=== PATIENT | female | born 1995 | race Caucasian/White ===

== ENCOUNTER → 2020-02-26 | Outpatient (CLI) | payer SELFPAY ==
--- NOTE | 2020-02-26 16:35 | RADIOLOGY REPORT (SQ) ---
EXAM DESCRIPTION: U/S [id number] TRNABD 1GES W/ODOP IMAGES COMPLETED DATE/TIME: 02/26/2020 2:10 pm REASON FOR STUDY: Z34.81 ENCOUNTER FOR SUPRVSN OF NORMAL , FIRST TRIMESTER Z34.81 ENCOUNTE R FOR SUPRVSN OF NORMAL , FIRST TRIM COMPARISON: None. TECHNIQUE: Transabdominal static and realtime grayscale images acquired of the pelvis. Additional se lected spectral and color Doppler images recorded. All images stored on PACs. bHCG: Not available. CLINICAL DATES: Not Available. LIMITATIONS: None. FINDINGS: FETUS: Single Living intrauterine . ULTRASOUND EGA: 8 weeks 1 day ULTRASOUND TERESA: 10/06/2020 EFW: Not applicable less than 20 weeks. CRL: 1.7 cm FHR: 178 beats per minute. SURVEY: No visualized anomalies. AMNIOTIC FLUID: Adequate amount. PLACENTA: Not yet developed due to early gestation. SUBCHORIONIC BLEED: No. SIZE OF BLEED: Not applicable. UTERUS: No masses. No anomalies. CERVICAL LENGTH: Not measured. RIGHT ADNEXA: Ovary not identified due to poor acoustical window. No adnexal free fluid. No adnexal masses. LEFT ADNEXA: Normal ovary with normal vascular flow. No adnexal free fluid. Corpus Luteum measuring 2 cm. FREE FLUID: None. OTHER: No other significant finding. IMPRESSION: LIVING INTRAUTERINE . EGA 8 weeks 1 day. Trimester of : First trimester - 0 to 13 weeks. TECHNICAL DOCUMENTATION: JOB ID: [id number] 2010 [employer]- All Rights Reserved rev-08/09 Reading location - IP/workstation name: [email or web address]
== END ==
LOC: RAD 13:53
PROVIDERS: ATTEND Midwife
DX: Z34.81 Encounter for supervision of other normal pregnancy, first trimester (principal); Z3A.08 8 weeks gestation of pregnancy
CPT/HCPCS: 76801

== ENCOUNTER 2020-03-19 23:46 | Emergency (ER) | payer SELFPAY ==
[2020-03-20 04:10] LABS: ABSOLUTE EOSINOPHILS # (AUTO) 0.2 10^3/uL (0.0-0.6); ABSOLUTE LYMPHOCYTES (AUTO) 1.9 10^3/uL (0.5-4.7); ABSOLUTE MONOCYTES (AUTO) 0.5 10^3/uL (0.1-1.4); ABSOLUTE NEUT (AUTO) 5.1 10^3/uL (1.7-8.2); BASOPHILS % (AUTO) 0.6 % (0-2); HEMATOCRIT 41.5 % (36.0-47.0); HEMOGLOBIN 14.1 g/dL (12.0-15.5); LYMPHOCYTES % (AUTO) 24.4 % (13-45); MEAN CORPUSCULAR VOLUME 91 fl (80-97); MONOCYTES % (AUTO) 6.9 % (3-13); PLATELET COUNT 226 10^3/uL (150-450); RED BLOOD COUNT 4.55 10^6/uL (3.72-5.28); RED CELL DISTRIBUTION WIDTH 12.8 % (11.5-14.0); SEGMENTED NEUTROPHILS % (AUTO) 66.1 % (42-78); TOTAL CELLS COUNTED % (AUTO) 100 %; WHITE BLOOD COUNT 7.7 10^3/uL (4.0-10.5)
[2020-03-20 04:37] LABS: APPEARANCE,URINE SLIGHTLY-CLOUDY; BILIRUBIN,URINE NEGATIVE (NEGATIVE); COLOR,URINE YELLOW; GLUCOSE, URINE NEGATIVE (NEGATIVE); KETONES,URINE 20 mg/dL (NEGATIVE); LEUKOCYTE ESTERASE,URINE NEGATIVE (NEGATIVE); NITRITE,URINE NEGATIVE (NEGATIVE); PROTEIN,URINE NEGATIVE (NEGATIVE); UROBILINOGEN,URINE NEGATIVE mg/dL (<2.0)
--- NOTE | 2020-03-20 05:57 | ER Document Report ---
ED GI/ - General Chief Complaint: Vaginal Bleeding Stated Complaint: VAGINAL BLEEDING, 12WEEKS Time Seen by Provider: 03/20/20 05:35 [facility] [[facility] Group[facility] - Follow up tomorrow Notes: Patient is a G3, P2 25-year-old female presents emergency department with a chief complaint of vaginal bleeding. Her bleeding started around 5 PM yesterday afternoon. Denies having any sex. Denies any vaginal discharge prior to the vaginal bleeding. States that the bleeding is more of a light menstrual cycle. States that she does have some spotting. LMP was December 27, 2019. TRAVEL OUTSIDE OF THE [place] IN LAST 30 DAYS: No - Related Data Allergies/Adverse Reactions: No Known Allergies Allergy (Verified 07/19/14 13:43) Past Medical History - Social History Smoking Status: Current Some Day Smoker Chew tobacco use (# tins/day): No Frequency of alcohol use: None Drug Abuse: None Family History: Reviewed & Not Pertinent Review of Systems - Review of Systems Notes: REVIEW OF SYSTEMS: CONSTITUTIONAL : Denies recent illness. Denies recent unintentional weight loss. Denies fever, chills, or sweats. EENT: Denies eye, ear, throat, or mouth pain, discharge, or symptoms. Denies nasal or sinus congestion. CARDIOVASCULAR: Denies chest pain. RESPIRATORY: Denies shortness of breath, cough, congestion, difficulty breathing, or wheezing. GASTROINTESTINAL: Denies nausea, vomiting, and diarrhea. Denies constipation. See HPI. GENITOURINARY: Denies difficulty urinating, burning, blood in urine, urgency or frequency. FEMALE GENITOURINARY: See HPI. MUSCULOSKELETAL: Denies neck and back pain. Denies joint pain or swelling. SKIN: Denies rash, itchiness, or lesions HEMATOLOGIC : Denies easy bruising or bleeding. LYMPHATIC: Denies swollen, painful, enlarged glands. NEUROLOGICAL: Denies no numbness or tingling denies weakness. Denies headache. Denies altered mental status. Denies alteration in speech. PSYCHIATRIC: Denies stress, anxiety, alteration in sleep patterns, or depression. All other systems reviewed and negative. Physical Exam - Vital signs Vitals: Temp Pulse Resp BP Pulse Ox 98.3 F 67 16 137/66 H 98 03/20/20 00:13 03/20/20 00:13 03/20/20 00:13 03/20/20 00:13 03/20/20 00:13 - Notes Notes: PHYSICAL EXAMINATION: GENERAL: Appears well, healthy, well-nourished, no acute distress. HEAD: Normocephalic, atraumatic. EYES: PERRL, conjunctiva normal, all extraocular movements intact, sclera nonic teric ENT: Moist mucous membranes. NECK: Supple, no noticeable swelling, redness, rash. Normal range of motion. LUNGS: Equal breath sounds bilaterally and clear to auscultation. No wheezes rales or rhonchi. CARDIOVASCULAR: S1-S2, regular rate, regular rhythm. Radial pulses 2+, normal. ABDOMEN: Normoactive bowel sounds. Soft, nontender, no guarding, no rebound tenderness, and no masses palpated. EXTREMITIES: Normal strength and range of motion, no pitting or edema. No cyanosis. NEUROLOGICAL: Moves all extremities upon command. Strength 5/5 in all extremities. PSYCH: Normal mood, normal affect. SKIN: Warm, dry. No rash, lesions, ulcerations noted. Normal skin turgor. Course - Re-evaluation Re-evalutation: Hematology is unremarkable, urinalysis shows blood in urine consistent with patient's vaginal bleeding. No discernable heart rate was noted on ultrasound, per the radiologist. This was discussed with the patient. She is to follow up with OBGYN tomorrow. I realized HCG levels were not ordered in [facility]. Will order this. Patient is O+, RHOGAM necessary. Followed up with Quantitative HCG. This is 3566. With the patient at what is supposed to be 12 weeks gestation, the patient is most likely miscarrying. She will still follow up with OBGYN tomorrow. - Vital Signs Vital signs: Temp Pulse Resp BP Pulse Ox 97.7 F 67 16 108/66 99 03/20/20 07:08 03/20/20 09:07 03/20/20 09:07 03/20/20 09:07 03/20/20 09:07 - Laboratory Results Result Diagrams: 03/20/20 03:56 Laboratory Results Interpreted: 03/20/20 03/20/20 04:11 08:36 Beta HCG, Quant 3566.10 H Urine Ketones 20 H Urine Blood LARGE H Critical Laboratory Results Reviewed: No Critical Results - Radiology Results Critical Radiology Results Reviewed: No Critical Results Discharge - Discharge Clinical Impression: Vaginal bleeding during Condition: Stable Disposition: HOME, SELF-CARE Additional Instructions: You were seen today in the emergency department for vaginal bleeding during . Your ultrasound at this time does not show a discernible heart rate. It is very important that you follow-up with [facility] tomorrow in regards to this visit. You can take Tylenol as needed for pain or cramping. Referrals: [facility] [Provider Group] - Follow up tomorrow
--- NOTE | 2020-03-20 07:29 | RADIOLOGY REPORT (SQ) ---
FIRST TRIMESTER OBSTETRIC ULTRASOUND: 03/20/2020 6:24 AM [facility] COMPARISON: None available HISTORY: 25-year old patient with vaginal bleeding, concern for with . TECHNIQUE: Multiple plata scale and color Doppler images of the pelvis were obtained transabdominally and transvaginally. FINDINGS: The uterus measures 9.7 x 6.0 x 7.1 cm. A single gestational sac is seen within the uterus. The gestational sac has a normal shape. The sac contains both a yolk sac and an embryo. The crown-rump length measures 1.96 cm corresponding to 8 weeks and 4 day(s). No heart rate was obtained. No perigestational hemorrhage is seen. The cervix measures 3.0 cm in length, when remeasured by me. The right ovary is not visualized and obscured by overlying bowel gas. The left ovary measures 2.6 x 1.9 x 2.3 cm. Normal arterial waveforms were obtained from both ovaries. No free fluid is seen in the cul-de-sac. IMPRESSION: There is a single intrauterine gestation which demonstrates no discernible heart rate. This is concerning for demise. Obstetric follow up for routine care should be performed.
[2020-03-20 09:07] VITALS: BP 108/66
== END 2020-03-20 09:07 | disposition home or self-care (01) ==
LOC: ER 23:46
DX: O46.91 Antepartum hemorrhage, unspecified, first trimester (principal); Z3A.12 12 weeks gestation of pregnancy; O99.331 Smoking (tobacco) complicating pregnancy, first trimester
CPT/HCPCS: 36415; 76817; 81001; 84702; 85025; 86900; 86901; 93976; 99284